=== PATIENT | male | born 2000 | race Caucasian/White ===

== ENCOUNTER 2021-02-14 12:59 | Emergency (ER) | payer MEDICAID, OTHER ==
[~2021-02-14] VITALS: Ht 170.2 cm; Wt 92.5 kg
[2021-02-14 13:07] VITALS: BP 137/88
--- NOTE | 2021-02-14 13:10 | NUR ---
PT TO AWAIT IN LOBBY
--- NOTE | 2021-02-14 13:49 | NUR ---
PT AMBULATED TO BED 6
--- NOTE | 2021-02-14 14:18 | NUR ---
SHASHANK STONE EVALUATING PT AT BEDSIDE
[2021-02-14] MEDS ORDERED: KETOROLAC 30 MG/ML VIAL IM ONE (14:25)
[2021-02-14] MEDS ORDERED: LIDOCAINE MPF 1% 10 MG/ML VIAL INJ ONE (14:25)
[2021-02-14] MEDS ORDERED: SULF-59 PO (14:28)
[2021-02-14] MEDS ORDERED: CEPH-588 PO (14:28)
[2021-02-14] MEDS ORDERED: NAPR-54 PO (14:28)
[2021-02-14 15:12] VITALS: BP 137/88
== END 2021-02-14 15:08 | disposition home or self-care (01) ==
LOC: MED 12:59
DX: L05.01 Pilonidal cyst with abscess (principal); Z79.899 Other long term (current) drug therapy
CPT/HCPCS: 10080; 96372; 99284; J1885; J2001; 99283